=== PATIENT | male | born 1945 | race Caucasian/White ===

== ENCOUNTER 2019-07-26 09:52 | Outpatient (CLI) | payer MEDICARE, BC ==
--- NOTE | 2019-07-26 16:56 | MRI ---
MRI OF THE LEFT KNEE WITHOUT CONTRAST: 07/26/19 HISTORY: Tear of medial meniscus. COMPARISON: Radiograph 06/24/19. FINDINGS: MEDIAL MENISCUS: Undersurface flap tear body and posterior horn medial meniscus sparing the root attachment. There is gutter extrusion of the flap fragment with mild loss of hoop stress. LATERAL MENISCUS: Low grade intrameniscal degeneration. No displaced tear. EXTENSOR MECHANISM: Quadriceps tendon, patella and patellar tendon are intact. The PCL has some mild degenerative signal within its footprint with subcortical marrow change. The AC L is intact. LCL is intact as well as the MCL. CARTILAGE: Patellofemoral compartment: There is cartilage denuding along the lateral patellar facet and lateral trochlea with subcortical cy st formation and osteochondral defects. Medial compartment: Some mild chondral fissuring and fraying throughout the weightbearing surface medial femoral condyle without full thickness defect. Lateral compartment: Low grade chondral fraying. No full thickness defect. SOFT TISSUES: Small volume joint fluid with small foci of debris within the superolateral recess. There is also fat ty metaplasia of the synovium. TENDONS: Low grade edema of the tibial footprint of the PCL. No fracture. No malalignment. Small medial compar tment osteophyte formation. MUSCLES: Muscle signal and bulk is normal. Within the lumen of the popliteal vein, there appears to be some eccentric thrombus, likely chronic. IMPRESSION: 1. Undersurface flap tear body and posterior horn medial meniscus with 1 mm gutter extrusion of the flap fragment and low grade loss of hoop stress. The tear spares the root attachment. 2. Mild intrameniscal degeneration lateral meniscal body without displaced tear. 3. Mild tibial footprint insertional edema of PCL. This may be sequela of an old injury, interst itial implantation of fluid. 4. 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 5. 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 6. Multifocal debris within the superolateral patellar recess likely from old displaced chondral fragments of the patellofemoral compartment with the largest body measuring up to 9 mm. 7. Mild synovial hypertrophy with fatty metaplasia. POS: HOME
== END 2019-07-26 09:53 | disposition home or self-care (01) ==
LOC: TBSIIMAG 09:52
PROVIDERS: ATTEND Orthopaedic Surgery
DX: S83.242A Other tear of medial meniscus, current injury, left knee, initial encounter (principal); R60.0 Localized edema; M94.262 Chondromalacia, left knee; M25.862 Other specified joint disorders, left knee; S89.92XS Unspecified injury of left lower leg, sequela

== ENCOUNTER 2019-07-30 07:16 | Outpatient (CLI) | payer MEDICARE, BC, OTHER ==
[2019-07-30 11:51] LABS: #Eosinphils 0.2 thou/uL (0.0-0.7); #Lymphocytes 1.3 thou/uL (1.20-3.40); #Monocytes 0.5 thou/uL (0.11-0.59); #Neutrophils 2.2 thou/uL (1.40-6.50); %Basophils 0.2 % (0.0-1.0); %Eosinophils 4.2 % (0.0-10.0); %Lymphocytes 30.4 % (21.0-51.0); %Monocytes 11.1 % (0.0-10.0); %Neutrophils 54.2 % (42.0-75.0); Hemoglobin 15.3 g/dL (14.0-18.0); Mean Corpuscular HGB CONC 33.6 g/dL (32.0-36.0); Mean Corpuscular Hemoglobin 31.5 pg (27.0-31.0); Mean Corpuscular Volume 93.8 fL (78.0-98.0); Mean Platelet Volume 7.6 fL (7.4-10.4); Platelet Count 216 thou/uL (130-400); Red Blood Cell (RBC) Count 4.87 mill/uL (4.70-6.10); White Blood Cell (WBC) Count 4.1 thou/uL (4.8-10.8)
[2019-07-30 12:57] LABS: Anion Gap 11 mmol/L (10-20); BUN (Urea Nitrogen) 15 mg/dL (8.4-25.7); Calc. Creatinine Clearance 0 mL/min (70-130); Calcium 8.9 mg/dL (7.8-10.44); Carbon Dioxide 25 mmol/L (23-31); Chloride 108 mmol/L (98-107); Estimated GFR-MDRD 62; Glucose 110 mg/dL (83-110); Potassium 4.6 mmol/L (3.5-5.1); Sodium 139 mmol/L (136-145)
[2019-07-31 12:45] LABS: SARS-CoV-2 MS2 Positive; SARS-CoV-2 N Gene Negative; SARS-CoV-2 S Gene Negative; SARS-CoV-2 orf1ab Negative
== END 2019-07-30 07:17 | disposition home or self-care (01) ==
LOC: LABBT 07:16
PROVIDERS: ATTEND Orthopaedic Surgery
DX: Z01.818 Encounter for other preprocedural examination (principal); Z11.59 Encounter for screening for other viral diseases; S83.242A Other tear of medial meniscus, current injury, left knee, initial encounter
CPT/HCPCS: 80048; 85025; U0003; 87635

== ENCOUNTER 2019-08-01 07:20 | Day surgery (SDC) | payer MEDICARE, BC ==
[2019-07-29 13:04] VITALS: BMI 30.3
[2019-08-01] MEDS ORDERED: PROPOFOL 20 ML ONE (07:51)
[2019-08-01] MEDS ORDERED: EPINEPHrine 1 MG/ML AMP ONE (07:51)
[2019-08-01] MEDS ORDERED: Fentanyl 100 MCG/2 ML VIAL ONE (09:06)
--- NOTE | 2019-08-01 12:56 | OP ---
DATE OF PROCEDURE: 08/01/2019 PREOPERATIVE DIAGNOSIS: Medial meniscus tear, left knee. POSTOPERATIVE DIAGNOSIS: Medial meniscus tear, left knee. FINDINGS AT SURGERY: Grade 3 chondromalacia of patellofemoral joint, grade 3 chondromalacia of medial femoral condyle, large posterior medial meniscus tear, intact lateral compartment, and intact ACL. ANESTHESIA: General. ESTIMATED BLOOD LOSS: Minimal. SPECIMENS: None. DRAINS: None. COMPLICATIONS: None. TOURNIQUET: Not used. DESCRIPTION OF PROCEDURE: The patient was taken to the operating room where general anesthesia was induced. Left leg was prepped and draped in sterile fashion. Scope was placed in the lateral portal and probe was placed in the medial portal. Findings were as above. I performed a partial medial meniscectomy using basket forceps and then smoothed using a 4.0 full-radius resector. I did this in several passes after most of the posterior medial meniscus was removed. I probed the meniscus and confirmed that the small rim was stable. Knee was irrigated and drained. Sterile dressing was applied. Job ID: [id number]
[2019-08-01] MEDS ORDERED: PHENYLEPHRINE-NS 100 MCG/ML 10 ML SYRINGE ONE (15:20)
[2019-08-01] MEDS ORDERED: Ondansetron PF 4 MG/2 ML Vial ONE (15:20)
[2019-08-01] MEDS ORDERED: Lidocaine 2% w/Epinephrine 1:200K 20 ML VIAL ONE (15:20)
[2019-08-01] MEDS ORDERED: Dexamethasone 20 MG/5 ML VIAL ONE (15:20)
[2019-08-01] MEDS ORDERED: Bupivacaine HCl 0.5%/Epinephrine 1:200,000/PF 30 ml Vial ONE (15:20)
[2019-08-01] MEDS ORDERED: PROPOFOL 200 MG/20 ML VIAL ONE (15:20)
[2019-08-01] MEDS ORDERED: Lidocaine 1% PF 5 ML VIAL ONE (15:20)
== END 2019-08-01 11:53 | disposition home or self-care (01) ==
LOC: SDC 07:20
PROVIDERS: ATTEND Orthopaedic Surgery
PROC: 0SBD4ZZ Excision of Left Knee Joint, Percutaneous Endoscopic Approach (ICD-10-PCS; principal; 2019-08-01)
DX: S83.242A Other tear of medial meniscus, current injury, left knee, initial encounter (principal); M22.42 Chondromalacia patellae, left knee; M17.12 Unilateral primary osteoarthritis, left knee; I10 Essential (primary) hypertension; K21.9 Gastro-esophageal reflux disease without esophagitis; G25.81 Restless legs syndrome; G43.909 Migraine, unspecified, not intractable, without status migrainosus; Z86.711 Personal history of pulmonary embolism; Z79.01 Long term (current) use of anticoagulants; Z79.899 Other long term (current) drug therapy; Z91.018 Allergy to other foods; Z91.048 Other nonmedicinal substance allergy status
CPT/HCPCS: J0171; J0670; J0690; J1100; J2001; J2405; J2704; J3010

== ENCOUNTER 2023-01-12 12:59 | Outpatient (CLI) | payer MEDICARE, BC ==
[2023-01-12 14:19] LABS: #Eosinphils 0.4 10x3/uL (0.0-0.5); #Monocytes 0.5 10x3/uL (0.0-1.1); #Neutrophils 2.6 10x3/uL (1.5-8.4); %Basophils 0.8 % (0.0-2.0); %Eosinophils 8.4 % (0.0-6.0); %Lymphocytes 26.1 % (18.0-47.0); %Monocytes 10.5 % (0.0-10.0); Hematocrit 41.5 % (38.8-50.0); Hemoglobin 13.9 g/dL (13.5-17.5); Mean Corpuscular HGB CONC 33.5 g/dL (32.0-36.0); Mean Corpuscular Hemoglobin 30.8 pg (27.0-33.0); Mean Platelet Volume 9.5 fl (7.4-10.4); Platelet Count 208 10x3/uL (150-450); RBC Distribution Width 12.6 % (11.5-14.5); Red Blood Cell (RBC) Count 4.51 10x6/uL (4.32-5.72); White Blood Cell (WBC) Count 4.9 10x3/uL (3.5-10.5)
[2023-01-12 15:22] LABS: Anion Gap 11 mmol/L (10-20); BUN (Urea Nitrogen) 20 mg/dL (8.4-25.7); Calc. Creatinine Clearance 0 mL/min (70-130); Calcium 8.9 mg/dL (7.8-10.44); Carbon Dioxide 26 mmol/L (23-31); Chloride 106 mmol/L (98-107); Estimated GFR 72; Glucose 108 mg/dL (83-110); Sodium 139 mmol/L (136-145)
== END 2023-01-12 13:00 | disposition home or self-care (01) ==
LOC: LABBT 12:59
PROVIDERS: ATTEND Orthopaedic Surgery
DX: Z01.818 Encounter for other preprocedural examination (principal); M17.12 Unilateral primary osteoarthritis, left knee
CPT/HCPCS: 80048; 85025; 85610; 87081; 93005; 93010

== ENCOUNTER 2023-01-17 05:31 | Observation (INO) | payer MEDICARE, BC ==
[2023-01-12 14:00] VITALS: BMI 30.3
[2023-01-17] MEDS ORDERED: Sodium Chloride 0.9% 100 ML ONE ×2 (06:01→06:50)
[2023-01-17] MEDS ORDERED: Vancomycin (BATCH) 1.5 GM/300 ML BAG ONE (06:01)
[2023-01-17] MEDS ORDERED: Tranexamic Acid 1,000 MG/10 ML VIAL ONE (06:01)
[2023-01-17] MEDS ORDERED: Bupivacaine PF 0.5% 30 ML VIAL ONE (06:24)
[2023-01-17] MEDS ORDERED: Midazolam HCl 2 mg/2 ml Vial ONE (06:36)
[2023-01-17] MEDS ORDERED: fentaNYL PF 100 MCG/2 ML SYRINGE ONE ×4 (06:36→09:48)
[2023-01-17] MEDS ORDERED: Ondansetron PF 4 MG/2 ML Vial ONE ×2 (06:44→07:32)
[2023-01-17] MEDS ORDERED: Dexamethasone 20 MG/5 ML VIAL ONE ×2 (06:44→07:32)
[2023-01-17] MEDS ORDERED: PROPOFOL 200 MG/20 ML VIAL ONE (06:44)
[2023-01-17] MEDS ORDERED: PHENYLEPHRINE-NS 100 MCG/ML 10 ML SYRINGE ONE ×2 (06:44→07:30)
[2023-01-17] MEDS ORDERED: ePHEDrine Sulfate 50 MG/10 ML VIAL ONE ×2 (06:44→08:57)
[2023-01-17] MEDS ORDERED: CEFAZOLIN 2 GM VIAL ONE (06:50)
[2023-01-17] MEDS ORDERED: Dexmedetomidine 200 MCG/2 ML VIAL ONE ×2 (06:55→07:55)
[2023-01-17] MEDS ORDERED: PROPOFOL 20 ML ONE ×2 (07:16→08:45)
[2023-01-17] MEDS ORDERED: Acetaminophen 325 MG TAB PO PRN (07:29)
[2023-01-17] MEDS ORDERED: diphenhydrAMINE 25 MG CAP PO PRN (07:29)
[2023-01-17] MEDS ORDERED: fentaNYL 50 mcg/mL 1 mL Vial SLOW IVP PRN ×2 (07:29)
[2023-01-17] MEDS ORDERED: Promethazine HCl 25 MG/ML VIAL IM PRN ×2 (07:29→07:48)
[2023-01-17] MEDS ORDERED: Zolpidem Tartrate 5 MG TAB PO PRN (07:29)
[2023-01-17] MEDS ORDERED: HYDROcodone/Acetaminophen 10/325 mg Tablet PO PRN ×2 (07:29)
[2023-01-17] MEDS ORDERED: Ondansetron PF 4 MG/2 ML Vial IVP PRN (07:29)
[2023-01-17] MEDS ORDERED: Ondansetron HCl/PF 4 MG/2 ML Vial IVP PRN (07:48)
[2023-01-17] MEDS ORDERED: HYDROmorphone 2 MG/ML VIAL SLOW IVP PRN (07:48)
[2023-01-17] MEDS ORDERED: fentaNYL 50 mcg/mL 1 mL Vial ONE ×2 (08:42→10:47)
[2023-01-17] MEDS ORDERED: HYDROmorphone 0.5 MG/0.5 ML SYRINGE ONE ×2 (09:23→09:36)
[2023-01-17] MEDS: Cholecalciferol 1,000 UNITS (25 MCG) TAB PO SCH (12:18)
[2023-01-17] MEDS: Loratadine 10 MG TAB PO SCH (12:18)
[2023-01-17] MEDS: Pramipexole Di-HCl 0.25 MG TAB PO SCH ×2 (12:18→19:51)
[2023-01-17] MEDS: Cyanocobalamin (Vitamin B-12) 1,000 MCG TAB PO SCH (12:18)
[2023-01-17] MEDS: Sodium Chloride 0.9% 1,000 ML IV SCH ×3 (12:24→21:52)
[2023-01-17] MEDS: CEFAZOLIN 2 GM in Sodium Chloride 0.9% 100 ML IVPB SCH ×2 (14:30→21:52)
[2023-01-17] MEDS ORDERED: Scopolamine 1 mg/72 hour Patch TOP PRN (17:46)
[2023-01-17] MEDS ORDERED: traMADol HCl 50 MG TAB PO PRN (17:46)
[2023-01-17] MEDS ORDERED: Metoclopramide HCl 10 MG/2 ML VIAL IVP PRN (17:47)
[2023-01-17] MEDS: traMADol HCl 50 MG TAB PO PRN ×2 (17:56→19:51)
[2023-01-17] MEDS ORDERED: FLU VACC QS2023(65UP)/MF59C/PF 60 MCG/0.5 ML SYRINGE IM ONE (18:00)
[2023-01-17] MEDS ORDERED: Lisinopril 10 MG TAB PO SCH (21:00)
[2023-01-18 05:04] LABS: Hematocrit 37.8 % (42.0-52.0); Hemoglobin 12.8 g/dL (14.0-18.0); Mean Corpuscular HGB CONC 33.9 g/dL (32.0-36.0); Mean Corpuscular Hemoglobin 31.5 pg (27.0-31.0); Mean Corpuscular Volume 93.1 fl (78.0-98.0); Mean Platelet Volume 9.2 fL (7.4-10.4); Platelet Count 163 10x3/uL (130-400); RBC Distribution Width 12.5 % (11.5-14.5); Red Blood Cell (RBC) Count 4.06 mill/uL (4.70-6.10); White Blood Cell (WBC) Count 8.3 10x3/uL (4.8-10.8)
[2023-01-18] MEDS: traMADol HCl 50 MG TAB PO PRN ×2 (05:33→05:49)
[2023-01-18] MEDS ORDERED: Ferrous Gluconate 324 MG TAB PO SCH (08:00)
[2023-01-18 08:33] VITALS: BP 98/64; TEMP 98.3
[2023-01-18] MEDS ORDERED: Multivitamin W/ Minerals 1 TAB PO SCH (09:00)
[2023-01-18] MEDS ORDERED: Senokot S 8.6-50 MG TAB PO SCH (09:00)
[2023-01-18] MEDS ORDERED: Tamsulosin HCl 0.4 MG CAP PO SCH (09:00)
[2023-01-18] MEDS ORDERED: Apixaban 2.5 MG TAB PO SCH (09:15)
[2023-01-18] MEDS: Loratadine 10 MG TAB PO SCH (09:31)
[2023-01-18] MEDS: Cyanocobalamin (Vitamin B-12) 1,000 MCG TAB PO SCH (09:31)
[2023-01-18] MEDS: Cholecalciferol 1,000 UNITS (25 MCG) TAB PO SCH (09:31)
[2023-01-18] MEDS: Pramipexole Di-HCl 0.25 MG TAB PO SCH (09:32)
[2023-01-18] MEDS ORDERED: Apixaban 5 MG TAB PO SCH ×2 (17:00→21:00)
[2023-01-19] MEDS ORDERED: Apixaban 5 MG TAB PO SCH (09:00)
[2023-01-23] MEDS ORDERED: Apixaban 5 MG TAB PO SCH (21:00)
== END 2023-01-18 11:15 | disposition home or self-care (01) ==
LOC: SDC 05:31 → SJJU 12:10 → SDC 13:17
PROVIDERS: ADMIT Orthopaedic Surgery; ATTEND Orthopaedic Surgery
PROC: 0SRD0JZ Replacement of Left Knee Joint with Synthetic Substitute, Open Approach (ICD-10-PCS; principal; 2023-01-17)
DX: M17.12 Unilateral primary osteoarthritis, left knee (principal); I10 Essential (primary) hypertension; K21.9 Gastro-esophageal reflux disease without esophagitis; Z86.711 Personal history of pulmonary embolism; Z91.018 Allergy to other foods; Z79.01 Long term (current) use of anticoagulants; Z79.899 Other long term (current) drug therapy
CPT/HCPCS: 27447; 71045; 73560; 85027; 97110 ×2; 97116 ×2; 97530 ×2; C1776; J3010; J3370; 36415; J1100; J1170; J2250; J2405; J2704; J3490; J7050; S0020

== ENCOUNTER 2023-11-28 10:29 | Outpatient (CLI) | payer MEDICARE, BC | END 2023-11-28 10:30 | disposition home or self-care (01) | LOC: SCSMRI 10:29 | PROVIDERS: ATTEND Orthopaedic Surgery | DX: M17.11 Unilateral primary osteoarthritis, right knee (principal); S83.241A Other tear of medial meniscus, current injury, right knee, initial encounter; S83.281A Other tear of lateral meniscus, current injury, right knee, initial encounter; M22.2X1 Patellofemoral disorders, right knee ==